=== PATIENT | female | born 1985 | race Caucasian/White ===

== ENCOUNTER → 2016-07-23 | Outpatient (CLI) | payer OTHER ==
[~2016-07-23] MED LIST: HYDR-5688 PO
== END | disposition home or self-care (01) ==
LOC: C.PAPS 16:06
PROVIDERS: ATTEND Physician Assistant
DX: Z12.4 Encounter for screening for malignant neoplasm of cervix (principal)

== ENCOUNTER 2016-08-08 12:47 | Emergency (ER) | payer OTHER ==
[~2016-08-08] VITALS: Ht 162.6 cm; Wt 69.7 kg
[2016-08-08 12:50] VITALS: TEMP 36.7; Ht 162.6 cm; Wt 69.7 kg
[2016-08-08] MEDS ORDERED: IBUPROFEN 600 MG TAB PO STA (12:57)
--- NOTE | 2016-08-08 13:22 | DIAGNOSTIC IMAGING REPORT ---
LEFT ANKLE MIN 3 VIEWS ROUTINE, LEFT TIBIA/FIBULA 2 VIEWS ROUTINE CLINICAL HISTORY: Left lower leg and ankle pain. Fall. COMPARISON STUDY: None. FINDINGS: A nondisplaced oblique fracture within the distal left fibula. Lateral soft tissue swelling within the ankle. The tibia appears intact. No dislocation. IMPRESSION: Nondisplaced oblique fracture within the distal left fibula. Electronically signed by: Joselito Polo M.D. 08/08/2016 1:21 PM Dictated Date/Time: 08/08/2016 1:19 PM
[2016-08-08] MEDS ORDERED: HYDR-5688 PO (13:26)
[2016-08-08 13:45] VITALS: BP 138/97; PULSE 63; O2SAT 99
--- NOTE | 2016-08-08 18:49 | EMERGENCY ROOM VISIT NOTE ---
ED Visit Note First contact with patient: 12:52 Chief Complaint: Left lower leg and ankle pain. History of Present Illness: Ms. Morrow is a 31-year-old white female who ambulates into the ED accompanied by her daughter complaining of proximal left lower leg pain and lateral left ankle pain. Patient reports yesterday she was at a wedding and standing on a table to take pictures. She fell off the table and injured her left ankle and lower leg. She is not exactly sure of the mechanism of injury. She reports since that time there is pain and swelling over the proximal fibula and throughout the ankle. Currently she describes her pain as a combination of throbbing and sharp at the ankle and just sharp over the proximal fibula. She rates her discomfort 10/10. The pain is nonradiating. Her pain in her lower leg worsens with palpation. The pain in her ankle worsens with palpation and all movement of the ankle. She has not identified any alleviating factors related to the pain. She reports she has not taken medications for pain prior to arrival at the hospital. She denies any associated symptoms including hip pain, knee pain, lower leg weakness/numbness/tingling. She denies any previous significant injuries or surgeries to the lower leg or ankle. Review of Systems: As noted above in history of present illness. Past Medical History: Gestational diabetes, recurrent UTIs. Current Medications: Patient denies. Allergies to Medications: Patient denies. Social History: Patient feels safe in her home environment; she admits to tobacco use; she denies alcohol use. Physical Examination: Vital Signs: Date Time Temp Pulse Resp B/P Pulse Ox O2 Delivery O2 Flow Rate FiO2 08/08/16 13:45 63 138/97 99 08/08/16 12:50 36.7 72 18 132/84 97 Room Air GENERAL: 31-year-old female in mild to moderate distress due to pain, nontoxic- appearing, afebrile and hemodynamically stable. NEUROLOGICAL: Awake, alert and oriented to person, place and time. Answering questions appropriately and following commands. Limped gait. Good hand eye coordination. No focal motor or sensory deficits. SKIN: Warm, dry and pink. No open soft tissue trauma noted. LEFT LOWER EXTREMITY: No gross bony deformity. No shortening or malrotation of the leg. No tenderness over the hip, thigh or knee. Mild tenderness over the fibular head without bony deformity, bony crepitus, swelling or ecchymosis. Moderate to severe tenderness throughout the lateral aspect of the ankle with moderate swelling and ecchymosis. No palpable bony crepitus. Difficult to do ligamentous testing due to pain and limited range of motion. There was also mild tenderness over the inferior aspect of the medial malleolus without bony deformity, swelling or ecchymosis. Throughout the foot the skin was warm and pink and capillary refill is brisk. She is able to distinguish light sensations through all dermatomes. ED Course: Patient is assessed as noted above. Patient was given ice and 600 mg of ibuprofen by mouth for pain. Left Lower Leg X-Rays: Were read by myself and the radiologist showing a nondisplaced fracture of the distal fibula. Left Ankle X-Rays: Were read by myself and the radiologist showing a nondisplaced fracture of the distal fibula. Patient was educated about today's findings and instructed on her treatment plan ; she verbalizes understanding and agreement with this plan. Clinical Impression: Left nondisplaced distal fibula fracture. Decision-Making: Initially my differential diagnosis I considered fibula fracture, ankle fracture, ankle sprain, ankle contusion and other causes. Disposition: Patient discharged home in stable condition accompanied by her daughter; prior to departure she was reassessed and subjectively reported she was feeling the same and rated her discomfort 8/10. Plan: Comfort measures were discussed with the patient including rest, ice, elevation , splint and crutch use and a sliding pain medication scale of ibuprofen, acetaminophen and [place]; appropriate narcotic precautions were discussed with the patient. Additionally her name was ran to the [facility] database and no red flags noted. Patient was encouraged to follow-up with orthopedics for definitive care and treatment. Patient was encouraged return ED for worsening/uncontrolled pain, uncontrolled swelling, foot weakness/numbness/tingling or any new/concerning symptoms.
== END 2016-08-08 13:46 | disposition home or self-care (01) ==
LOC: C.EDB 12:48 → C.EDD 13:46
DX: S82.455A Nondisplaced comminuted fracture of shaft of left fibula, initial encounter for closed fracture (principal); W17.89XA Other fall from one level to another, initial encounter; Y92.89 Other specified places as the place of occurrence of the external cause; F17.200 Nicotine dependence, unspecified, uncomplicated; Z87.440 Personal history of urinary (tract) infections